=== PATIENT | male | born 1945 | race Caucasian/White ===

== ENCOUNTER 2017-04-02 09:05 | Day surgery (SDC) | payer MEDICARE, MEDICAID ==
[2017-03-15 12:36] VITALS: BMI 25.2
[2017-04-02] MEDS ORDERED: Acetaminophen-Codeine 300/30 mg Tab PO PRN (09:20)
[2017-04-02] MEDS ORDERED: Dextrose 5%/0.45% NS 1,000 ML IV SCH (09:30)
[2017-04-02] MEDS ORDERED: HYDROmorphone 0.5 mg/0.5 ml ISec IVP PRN (11:17)
[2017-04-02] MEDS ORDERED: Lactated Ringer's 1,000 ML IV ONE ×2 (11:45→12:10)
[2017-04-02] MEDS ORDERED: Propofol 10 mg/ml Inj (20 ML) ONE (11:49)
[2017-04-02] MEDS ORDERED: Midazolam 2 MG/2 ML VIAL ONE (11:49)
[2017-04-02 12:28] VITALS: O2SAT 100
--- NOTE | 2017-04-02 12:31 | OP ---
PROCEDURE DATE: 04/02/2017 PREOPERATIVE DIAGNOSIS: Right auricular cyst. POSTOPERATIVE DIAGNOSIS: Right auricular cyst. PROCEDURE: Right auricular cyst removal. SIGNIFICANT FINDINGS: Right auricular cyst. PROCEDURE: The patient was brought in room, placed in supine position. Anesthesia was initiated thr ough sedation. The right ear was prepped and draped in the usual sterile manner. The right preauric ular cyst area was injected with lidocaine with epinephrine. Elliptical incision was made using a #1 5 blade. Dissections were done around where the cyst was and the cyst was removed. Bleeding was con trolled using cautery. The patient was taken off anesthesia and taken to recovery room in stable man ner. Richie Ricci MD cc: [id number] TT: 04/02/2017 12:30:36 jn
[2017-04-02 13:17] VITALS: BP 112/57; PULSE 80; RESP 18; TEMP 97.5
== END 2017-04-02 13:19 | disposition home or self-care (01) ==
LOC: C.SDS 09:05
PROVIDERS: ATTEND Otolaryngology
DX: Q18.1 Preauricular sinus and cyst (principal); L72.0 Epidermal cyst
CPT/HCPCS: 11442; 82948; 88304; J2250; J2704; J3010; J7120